=== PATIENT | female | born 1980 | race Caucasian/White ===

== ENCOUNTER 2017-08-21 05:40 | Day surgery (SDC) | payer OTHER ==
[~2017-08-21] VITALS: Ht 162.6 cm; Wt 53.6 kg
[~2017-08-21 05:40] MED LIST: CeFAZolin 1 GM/DEXTROSE 50 ML IV ONE; SODIUM CHLORIDE 0.9% 1,000 ML IV ONE
[2017-08-21] MEDS ORDERED: MIDAZOLAM HCL 2 MG/2 ML VIAL IVP ONE (05:41)
[2017-08-21] MEDS ORDERED: FentaNYL CITRATE-PF 100 MCG/2 ML VIAL IVP ONE (05:41)
[2017-08-21] MEDS ORDERED: KETAMINE HCL 50 MG/ML 10 ML VIAL IVP ONE (05:41)
[2017-08-21] MEDS ORDERED: 0.9% SODIUM CHLORIDE 10 ML VIAL IVP ONE (05:41)
[2017-08-21] MEDS ORDERED: LIDOCAINE HCL/PF 2% 5 ML VIAL IM ONE (05:41)
[2017-08-21] MEDS ORDERED: UBID50TA3 PO (06:15)
[2017-08-21] MEDS ORDERED: TURM1POW MC (06:15)
[2017-08-21] MEDS ORDERED: PANC1POW PO (06:15)
[2017-08-21 06:18] LABS: BASOPHILS % (AUTO) 0.2 % (0.0-2.0); EOSINOPHILS % (AUTO) 0.3 % (1.0-6.0); HEMATOCRIT 38.1 % (36-46); HEMOGLOBIN 13.1 g/dL (12.0-16.0); LYMPHOCYTES # (AUTO) 1.8 K/uL (1.0-4.8); LYMPHOCYTES % (AUTO) 12.1 % (22.0-44.0); MEAN CORPUSCULAR HEMOGLOBIN 32.6 pg (26.0-34.0); MEAN CORPUSCULAR HGB CONC 34.3 G/dL (31.0-37.0); MEAN CORPUSCULAR VOLUME 95 fL (80-100); MONOCYTES # (AUTO) 1.3 K/uL (0.1-1.0); MONOCYTES % (AUTO) 8.7 % (2.0-9.0); NEUTROPHILS # (AUTO) 11.8 K/uL (1.8-7.7); NEUTROPHILS % (AUTO) 78.7 % (40.0-70.0); PLATELET COUNT (AUTO) 281 K/uL (150-450); RED BLOOD CELL COUNT(AUTO) 4.02 MIL/uL (4.00-5.20); RED CELL DISTRIBUTION WIDTH 12.6 % (11.5-14.5)
[2017-08-21] MEDS ORDERED: PROPOFOL 1000 MG/ISO-OSM 100 ML IV ONE (06:45)
[2017-08-21] MEDS ORDERED: RINGERS SOLUTION,LACTATED 1,000 ML IV ONE (06:46)
[2017-08-21] MEDS ORDERED: CeFAZolin 1 GM/DEXTROSE 50 ML IV ONE (07:00)
[2017-08-21] MEDS ORDERED: SODIUM CHLORIDE 0.9% 1,000 ML IV ONE (07:00)
[2017-08-21] MEDS ORDERED: LORazepam 2 MG/ML VIAL IVP PRN (07:00)
[2017-08-21] MEDS ORDERED: IOVERSOL 350 MG/ML 100 ML VIAL ONE (07:34)
[2017-08-21] MEDS ORDERED: SODIUM CHLORIDE 0.9% 1,000 ML IV SCH (09:28)
[2017-08-21] MEDS ORDERED: HYDROmorphone HCL 2 MG TABLET PO ONE (09:30)
[2017-08-21] MEDS ORDERED: HYDROmorphone 2 MG/ML SYRINGE IVP PRN ×2 (09:30→10:00)
[2017-08-21] MEDS ORDERED: OxyCODONE HCL/ACETAMINOPHEN 5-325 MG TABLET PO PRN ×2 (09:30)
[2017-08-21] MEDS ORDERED: MEPERIDINE-PF 25 MG/ML SYRINGE IVP PRN (10:00)
[2017-08-21] MEDS ORDERED: FentaNYL CITRATE-PF 100 MCG/2 ML VIAL IVP PRN (10:00)
[2017-08-21] MEDS ORDERED: HYDROmorphone 2 MG/ML SYRINGE IM ONE (10:30)
== END 2017-08-21 11:15 | disposition home or self-care (01) ==
LOC: SURGERY 05:40 → EDSTATUS 07:30 → SURGERY 11:15
PROVIDERS: ATTEND Radiology Diagnostic Radiology
DX: R19.09 Other intra-abdominal and pelvic swelling, mass and lump (principal); Z85.068 Personal history of other malignant neoplasm of small intestine; Z85.43 Personal history of malignant neoplasm of ovary; Z98.890 Other specified postprocedural states; Z91.018 Allergy to other foods; Z79.899 Other long term (current) drug therapy
CPT/HCPCS: 20983; J0690; J2250; J2704; J3010; J3490; J7030; J7120